=== PATIENT | male | born 1985 | race African-American/Black ===

== ENCOUNTER 2021-02-22 05:54 | Emergency (ER) | payer BC ==
[~2021-02-22] VITALS: Ht 182.9 cm; Wt 86.2 kg
[2021-02-22] MEDS ORDERED: PROAIR HFA8.5 GM INH (06:08)
[2021-02-22] MEDS ORDERED: AMPHETAMINE SAL10 MG PO (06:09)
[2021-02-22] MEDS ORDERED: EPINEPHRIN0.3 MG/0.1 IM (06:09)
[2021-02-22] MEDS ORDERED: WIXELA 250-501 EACH INH (06:09)
[2021-02-22 08:08] VITALS: BP 126/74
== END 2021-02-22 08:09 | disposition home or self-care (01) ==
LOC: ER 05:54
DX: S16.1XXA Strain of muscle, fascia and tendon at neck level, initial encounter (principal); F41.9 Anxiety disorder, unspecified; J45.909 Unspecified asthma, uncomplicated; Z79.51 Long term (current) use of inhaled steroids; Z79.899 Other long term (current) drug therapy; Z91.010 Allergy to peanuts; Z91.013 Allergy to seafood; V87.2XXA Person injured in collision between car and pick-up truck or van (traffic), initial encounter; Y93.89 Activity, other specified; Y92.89 Other specified places as the place of occurrence of the external cause; Y99.8 Other external cause status